=== PATIENT | female | born 1990 | race Two or more races ===

== ENCOUNTER 2018-07-19 06:02 | Emergency (ER) | payer BC ==
[~2018-07-19] VITALS: Ht 167.6 cm; Wt 79.4 kg
--- NOTE | 2018-07-19 06:10 | NUR ---
PT A/OX4, RESPONSIVE TO VERBAL AND TACTILE STIMULI. PT C/O RUQ & LUQ ABD PAIN SINCE 1699 YESTERDAY, PROVOKED UPON MOVEMENT, SHARP IN QUALITY, RADIATES THROUGHOUT ALL QUADRANTS, 8/10, CONSTANT. PT REPORTS N/V/D X 6 SINCE 1699 YESTERDAY. ABD NON-DISTENDED IN APPEARANCE, BOWEL SOUNDS ACTIVE IN ALL 4 QUADRANTS, SOFT ON PALPATION, NO REBOUND TENDERNESS. PT DENIES C/P, SOB, DIZZINESS, HEADACHE.
[2018-07-19] MEDS ORDERED: ONDANSETRON 4 MG/2 ML VIAL ONE (06:28)
[2018-07-19] MEDS ORDERED: HYDROMORPHONE 1 MG/1 ML DISP.SYRIN ONE (06:28)
[2018-07-19] MEDS ORDERED: HYDROMORPHONE 1 MG/1 ML DISP.SYRIN IV ONE (06:30)
[2018-07-19] MEDS ORDERED: ONDANSETRON 4 MG/2 ML VIAL IV ONE (06:30)
[2018-07-19] MEDS ORDERED: IV NORMAL SALINE 1000 ML BAG IV ONE ×2 (06:30→06:45)
[2018-07-19 06:38] LABS: *BILIRUBIN,URIN NEGATIVE (NEGATIVE); *BLOOD, URINE NEGATIVE (NEGATIVE); *CLARITY,URINE SLIGHTLY CLOUDY (CLEAR); *COLOR,URINE YELLOW (YELLOW); *KETONES,URINE NEGATIVE (NEGATIVE); *PROTEIN,URINE NEGATIVE (NEGATIVE); LEUKOCYTE ESTERASE ,URINE 1+ (NEGATIVE); NITRITE, URINE NEGATIVE (NEGATIVE); PH,URINE 8.5 (5.0-8.0); UGLUCOSE NEGATIVE (NEGATIVE)
[2018-07-19 06:39] LABS: *URINE HCG, QUAL NEGATIVE (NEGATIVE)
[2018-07-19 06:40] LABS: BACTERIA,URINE FEW /HPF (NONE SEEN); SQUAMOUS EPITHELIAL CELL,UR MODERATE /HPF (NONE SEEN); URINE AMORPHOUS PHOSPHATES MANY /HPF
[2018-07-19 06:46] LABS: BASOPHILS % (AUTO) 0.2 % (0.0-2.0); HEMATOCRIT 39.8 % (31.2-41.9); HEMOGLOBIN 13.4 g/dL (10.9-14.3); LYMPHOCYTES # (AUTO) 0.6 K/uL (20.0-40.0); LYMPHOCYTES % (AUTO) 4.1 % (20.5-51.5); MEAN CORPUSCULAR HEMOGLOBIN 30.4 uug (24.7-32.8); MEAN CORPUSCULAR HGB CONC 34 g/dL (32.3-35.6); MEAN CORPUSCULAR VOLUME 89.9 fL (75.5-95.3); MONOCYTES % (AUTO) 6.1 % (0.0-11.0); NEUTROPHILS # (AUTO) 14.2 K/uL (1.8-8.9); NEUTROPHILS % (AUTO) 89.6 % (38.5-71.5); PLATELET COUNT (AUTO) 220 K/uL (179-408); RED BLOOD CELL COUNT(AUTO) 4.43 MIL/uL (3.63-4.92); WHITE BLOOD COUNT (AUTO) 15.9 K/uL (3.8-11.8)
[2018-07-19 06:56] LABS: CREATININE 0.8 mg/dL (0.6-1.3); POTASSIUM 3.6 mmol/L (3.5-5.1)
[2018-07-19 07:01] LABS: BILIRUBIN,DIRECT 0.1 mg/dL (0.0-0.2); BILIRUBIN,TOTAL 0.4 mg/dL (0.2-1.0); TOTAL PROTEIN, SERUM 8.1 g/dL (6.4-8.2)
--- NOTE | 2018-07-19 07:04 | NUR ---
GAVE SHIFT REPORT TO MICHAEL CHAMBERLAIN.
--- NOTE | 2018-07-19 07:20 | NUR ---
Patient is awake and alert with no new complaints. States she feels better no further vomiting.
--- NOTE | 2018-07-19 08:04 | NUR ---
Patient is awake and alert, states still has some mild cramping but feels much better. IV fluids still going in
--- NOTE | 2018-07-19 08:54 | NUR ---
Third liter of IV fluids completed.
--- NOTE | 2018-07-19 08:54 | NUR ---
DC, RX AND FOLLOW UP INSTRUCTIONS GIVEN AND EXPLAINED TO PATIENT AND MALE FRIEND WHO STATE THEY UNDERSTAND ALL INSTRUCTIONS INCLUDING DRIVING PRECAUTIONS DUE TO RECENT DILAUDID ADMINISTRATION.
--- NOTE | 2018-07-19 08:54 | NUR ---
IV removed. Catheter intact and site benign. Pressure and 4x4 gauze applied to site. No bleeding noted.
[2018-07-19 08:59] VITALS: BP 115/65
== END 2018-07-19 09:00 | disposition home or self-care (01) ==
LOC: ER 06:09
DX: K52.9 Noninfective gastroenteritis and colitis, unspecified (principal)
CPT/HCPCS: 36415; 80048; 80076; 81001; 83690; 84703; 85025; 96361; 96374; 96375; 99285; J1170; J2405; A4663; J7030